=== PATIENT | female | born 1945 | race Caucasian/White ===

== ENCOUNTER → 2016-10-29 | Outpatient (CLI) | payer OTHER | LOC: FIMAGING 07:44 | PROVIDERS: ATTEND Internal Medicine Pulmonary Disease | DX: R91.8 Other nonspecific abnormal finding of lung field (principal) ==

== ENCOUNTER 2018-01-31 09:59 | Day surgery (SDC) | payer OTHER ==
--- NOTE | 2018-01-31 09:51 | PDGENHP ---
History & Physical Chief Complaint: Previous TVA cecal polyp, 07/2017, follow up History of Present Illness: Had routine colonscopy 07/2017. Large carpet like polyp in the cecum. Piecmeal excised. TVA. Preents for follow up. Pertinent Past, Social, Family History: HTN. GERD. Colon polyps. Diverticulosis Relevant Physical Exam: Lungs clear. Cardiac normal s1s2
[2018-01-31] MEDS ORDERED: MIDAZOLAM 2 MG/2 ML VIAL ONE (10:12)
[2018-01-31] MEDS ORDERED: LIDOCAINE 2% 5 ML SDV ONE (10:12)
[2018-01-31] MEDS ORDERED: PROPOFOL/EMULSION 500 MG/50 ML BOTTLE IV ONE (10:12)
--- NOTE | 2018-01-31 10:38 | PDANEPAE ---
ANE History of Present Illness colon ANE Past Medical History - Cardiovascular History Hx Hypertension: Yes Hx Arrhythmias: No Hx Chest Pain: No Hx Coronary Artery / Peripheral Vascular Disease: No Hx CHF / Valvular Disease: No Hx Palpitations: No Cardiovascular History Comment: FOLLOWED BY DR MARC IN [facility] - Pulmonary History Hx COPD: No Hx Asthma/Reactive Airway Disease: No Hx Recent Upper Respiratory Infection: No Hx Oxygen in Use at Home: No Hx Sleep Apnea: No Sleep Apnea Screening Result - Last Documented: Negative Pulmonary History Comment: HX OF BRONCHITIS 2017 AND 2016. 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 HX OF COLON POLYP. PREVIOUS COLONOSCOPY 07/2017 HAD PAIN POST- PROCEDURE AND HAD A EXP LAP - Other Health History Other Health History: WEARS READING GLASSES. LEGS ARE PEELING FROM RECENT TRIP TO [place] - Chronic Pain History Chronic Pain: Yes (LOWER BACK) - Surgical History Prior Surgeries: LASIK EYE SURG. 10/11/11 L5-S1 TLIF WITH VVC. PREVIOUS COLONOSCOPY. EXP LAP 07/2017. UTERINE POLYP REMOVED ANE Review of Systems Review of Systems: - Exercise capacity Exercise capacity: >=4 METS METS (RN): 6 METS ANE Patient History - Allergies Allergies/Adverse Reactions: amlodipine Allergy (Verified 01/27/18 16:44) DIZZY, VOMITING bisoprolol Allergy (Verified 01/27/18 16:44) FATIGUED codeine [Codeine] Allergy (Verified 01/27/18 16:44) Vomiting lisinopril Allergy (Verified 01/27/18 16:44) DIZZY, VOMITING - Home Medications Home medications: home medication list seen and reviewed Home Medications: Benicar 01/27/18 [Last Taken 01/31/18 08:00] Herbals/Supplements -Info Only 01/27/18 [Last Taken 01/27/18] Ranitidine HCl 01/27/18 [Last Taken 01/30/18 22:00] Xanax HS PRN 01/27/18 [Last Taken 01/30/18 22:00] Cymbalta 01/31/18 [Last Taken 01/31/18 08:00] Xyzal 01/31/18 [Last Taken 01/30/18 22:00] - NPO status NPO Status: no food or drink >8 hours NPO Since - Liquids (Date): 01/31/18 NPO Since - Liquids (Time): 02:00 NPO Since - Solids (Date): 01/30/18 NPO Since - Solids (Time): 08:30 - Smoking Hx Smoking Status: Former smoker - Family Anes Hx Family Hx Anesthesia Complications: UNKNOWN- ADOPTED ANE Labs/Vital Signs - Vital Signs Blood Pressure: 141/88 Heart Rate: 66 Respiratory Rate: 9 O2 Sat (%): 94 Height: 158.75 cm Weight: 58.967 kg ANE Physical Exam - Airway Mallampati Score: Class 2 Mouth exam: normal dental/mouth exam - Pulmonary Pulmonary: no respiratory distress - Cardiovascular Cardiovascular: regular rate and rhythym - ASA Status ASA Status: II ANE Anesthesia Plan Anesthesia Plan: GA with mask, MAC
[2018-01-31] MEDS ORDERED: NALOXONE HCL 0.4 MG/ML INJ IVP PRN (10:41)
[2018-01-31] MEDS ORDERED: ONDANSETRON 4 MG/2 ML VIAL IVP PRN (10:46)
[2018-01-31] MEDS ORDERED: fentaNYL 100 MCG/2 ML INJ IVP PRN (10:46)
[2018-01-31] MEDS ORDERED: ALBUTEROL 3 ML DEYVIAL IH PRN (10:46)
[2018-01-31] MEDS ORDERED: LR 500 ML IV PRN (10:46)
--- NOTE | 2018-01-31 11:08 | POSTANESTH ---
Post Anesthetic Evaluation Cardiovascular Status: Normal, Stable Respiratory Status: Normal, Stable Level of Consciousness/Mental Status: Can Participate in Eval Pain Control: Adequate, Prn Tx Ordered Nausea/Vomiting Control: Adequate, Prn Tx Ordered Complications Possibly Related to Anesthesia: None Noted
--- NOTE | 2018-01-31 11:11 | GIREPORT ---
Formerly [facility] - Endoscopy Department Patient Name: Lyndsey Oleary Procedure Date: 01/31/2018 10:31 AM Patient Type: Outpatient Attending MD/ ER Physician: Sihva Lerma MD Procedure: Colonoscopy Indications: Adenomatous polyps in the colon, Follow-up for history of adenomatous p olyps in the colon, Cecal polyp, TVA piecemeal excised 07/2017. Providers: Shiva Lerma MD Medicines: Propofol per Anesthesia Complications: No immediate complications. Description of Procedure: After obtaining informed consent, the scope was passed under direct vis ion. Throughout the procedure, the patient's blood pressure, pulse, and oxyg en saturations were monitored continuously. The Colonoscope was introduced through the anus and advanced to the cecum, identified by appendiceal orifice and ileocecal valve. The colonoscopy was performed without difficulty. The patient tolerated the procedure well. The quality of th e bowel preparation was good. The ileocecal valve, appendiceal orifice, a nd rectum were photographed. Findings: Multiple small and large-mouthed diverticula were found in the sigmoid colon. A 12 mm polyp was found in the cecum. The polyp was carpet-like. Biopsi es were taken with a cold forceps for histology. Area was tattooed with an injection of 1 mL of Spot (carbon black). The exam was otherwise without abnormality on direct and retroflexion v iews. Estimated Blood Loss: Estimated blood loss: none. Post Op Diagnosis: - Diverticulosis in the sigmoid colon. - One 12 mm polyp in the cecum. Biopsied. Tattooed. - The examination was otherwise normal on direct and retroflexion views . Recommendation: - Patient has a contact number available for emergencies. The signs and symptoms of potential delayed complications were discussed with the pat ient. Return to normal activities tomorrow. Written discharge instructions we re provided to the patient. - High fiber diet. - Continue present medications. - Await pathology results. - Refer to a surgeon. - Thank you for allowing me to participate in the care of your patient. Attending Participation: I personally performed the entire procedure. Shiva Lerma MD Shiva Lerma MD 01/31/2018 11:11:02 AM This report has been signed electronicallySttamie Lerma MD Number of Addenda: 0 Note Initiated On: 01/31/2018 10:31 AM Total Procedure Duration Time 0 hours 13 minutes 17 seconds [email or web address]
[2018-01-31 12:51] VITALS: BP 142/93
== END 2018-01-31 12:59 | disposition home or self-care (01) ==
LOC: FSGY 09:59
PROVIDERS: ATTEND Internal Medicine Gastroenterology
DX: Z09 Encounter for follow-up examination after completed treatment for conditions other than malignant neoplasm (principal); D12.0 Benign neoplasm of cecum; K57.30 Diverticulosis of large intestine without perforation or abscess without bleeding; I10 Essential (primary) hypertension; K21.9 Gastro-esophageal reflux disease without esophagitis; Z86.010 Personal history of colon polyps; Z87.891 Personal history of nicotine dependence
CPT/HCPCS: J2250; J2704

== ENCOUNTER → 2018-05-23 | Outpatient (CLI) | payer OTHER | LOC: FIMAGING 15:10 | DX: R91.8 Other nonspecific abnormal finding of lung field (principal); Z87.891 Personal history of nicotine dependence; Z85.820 Personal history of malignant melanoma of skin ==